=== PATIENT | female | born 1955 | race Caucasian/White ===

== ENCOUNTER → 2016-03-22 | Outpatient (CLI) | payer BC ==
[~2016-03-22] MED LIST: DULO60CA7 PO
== END ==
LOC: RT 08:54
PROVIDERS: ATTEND Nurse Practitioner Family
DX: R06.02 Shortness of breath (principal)
CPT/HCPCS: 94060

== ENCOUNTER → 2016-07-23 | Outpatient (REF) | payer BC | LOC: LAB 12:10 | PROVIDERS: ATTEND Nurse Practitioner Family | DX: R05 Cough (principal); R49.0 Dysphonia | CPT/HCPCS: 82565; 84520 ==

== ENCOUNTER → 2016-07-23 | Outpatient (CLI) | payer BC ==
--- NOTE | 2016-07-24 08:50 | Diagnostic Imaging Report ---
PROCEDURE: 1. CT neck soft tissue with and without contrast. 2. CT chest with and without intravenous contrast. TECHNIQUE: 1. Helically acquired axial images were obtained through the neck both before and after the administration of intravenous contrast. 2. Axial pre-and postcontrast CT images of the chest were obtained with subsequent coronal and sagittal reformats provided. DATE: July 23, 2016. INDICATION: 60-year-old female, hoarse voice, cough. FINDINGS: The partially visualized portions of the orbits are unremarkable in appearance. The bilateral parotid and submandibular glands are unremarkable in appearance. There is a low-attenuation left thyroid nodule on axial image 53 measuring up to 8 mm in size. There is a low-attenuation nodule in the superior aspect of the level of the thyroid measuring 3.6 mm in size on axial image 48. There is asymmetrically increased soft tissue attenuation in the region of the left aryepiglottic fold. There is a left-sided level 2A cervical lymph node on axial image 34 which measures 7 mm in short axis. There are subcentimeter short axis left posterior cervical lymph nodes. There are subcentimeter short axis right posterior cervical lymph nodes. There is a right level 2A cervical lymph node on axial image 32 which measures 8mm in short axis and a right-sided level 2A cervical lymph node on image 35 measuring 9 mm in short axis. The visualized portions of the paranasal sinuses are well aerated. The mastoid air cells and middle ears are well aerated bilaterally. There is a mild reversal of the normal cervical lordosis. There are [id number] disc degenerative changes of the cervical spine. There are multilevel [id number] facet degenerative changes of the cervical spine. There is no identified acute bony abnormality. There is a small focal area of ill-defined alveolar consolidation in the right upper lobe on axial image 16. There is no identified pulmonary nodule. There is no additional focal airspace consolidation. There is no pneumothorax. There is no pleural effusion. The central airways are patent. The heart is not enlarged. There is no identified pericardial effusion. There is no identified central pulmonary embolus. There is no identified abnormally enlarged mediastinal, hilar, or axillary lymph node which meets CT size criteria for adenopathy. Limited visualized portions of the upper abdomen are unremarkable in appearance. There is no identified acute bony abnormality. IMPRESSION: 1. Asymmetric soft tissue prominence in the region of the left aryepiglottic fold. Recommend correlation with direct visualization to evaluate for potential malignancy. 2. Mildly prominent bilateral level 2A cervical lymph nodes. 3. Focal area of ill-defined alveolar consolidation in the right upper lobe which is nonspecific. Differential diagnostic considerations would include very early findings of pneumonia, pneumonitis or inflammatory process, or atelectasis. This would be an unusual appearance for early malignancy although this is still considered. Recommend correlation clinically. Short-term followup dedicated CT chest without contrast is recommended to assess for interval change. Dictated by: Dictated on workstation # [id number]
== END ==
LOC: RAD 14:48
PROVIDERS: ATTEND Nurse Practitioner Family
DX: R05 Cough (principal); R49.0 Dysphonia
CPT/HCPCS: 70492; 71270; Q9967